=== PATIENT | female | born 1945 | race Hispanic/Latino ===

== ENCOUNTER 2018-12-26 15:17 | Inpatient (IN) | payer MEDICARE ==
--- NOTE | 2018-12-26 15:45 | Event Note ---
ED Screening Note Date of service: 12/26/18 Time: 15:41 ED Screening Note: Pt complains of right flank and side pain x 4 days states urinary and frequency pressure states diagnosed with kidney stone at urgent care Tuesday via CT states pain is worsening states stone is 5 mm--referred here by urologist today for admission--Dr. Collier This initial assessment/diagnostic orders/clinical plan/treatment(s) is/are subject to change based on patients health status, clinical progression and re- assessment by fellow clinical providers in the ED. Further treatment and workup at subsequent clinical providers discretion. Patient/guardian urged not to elope from the ED as their condition may be serious if not clinically assessed and managed. Initial orders include: Labs CBC
[2018-12-26] MEDS ORDERED: KETOROLAC 30 MG/1 ML INJ IV ONE (16:11)
[2018-12-26] MEDS ORDERED: ONDANSETRON 4 MG/2 ML INJ IV ONE (16:11)
[2018-12-26 16:19] LABS: Bilirubin,Urine NEG (Negative); Blood,Urine MOD (Negative); Color,Urine Yellow (Yellow); Mucus,Urine 1+ /HPF; Urobilinogen,Urine < 2.0 mg/dL (<2.0)
[2018-12-26 17:13] LABS: Basophils % (Auto) 0.7 % (0.0-1.8); Eosinophils # (Auto) 0.4 K/mm3 (0.0-0.4); Eosinophils % (Auto) 6.4 % (0.0-4.3); Hemoglobin 12.6 gm/dl (10.1-14.3); Lymphocytes # (Auto) 1.3 K/mm3 (1.2-5.4); Lymphocytes % (Auto) 19.1 % (13.4-35.0); Mean Corpuscular HGB Conc 34 % (30-34); Mean Corpuscular Volume 95 fl (79-97); Monocytes # (Auto) 0.8 K/mm3 (0.0-0.8); Monocytes % (Auto) 11.8 % (0.0-7.3); Platelet Count 282 K/mm3 (140-440); Red Blood Count 3.88 M/mm3 (3.65-5.03); Red Cell Distribution Width 12.7 % (13.2-15.2)
[2018-12-26 17:21] LABS: Alanine Aminotransferase 13 units/L (7-56); Albumin 3.8 g/dL (3.9-5); BUN/Creatinine Ratio 19; Blood Urea Nitrogen 15 mg/dL (7-17); Calcium 9.2 mg/dL (8.4-10.2); Hemolysis Index 88
[2018-12-26 17:25] LABS: Partial Thromboplastin Time 25.6 Sec. (24.2-36.6)
[2018-12-26 17:28] LABS: INR 0.98 (0.87-1.13)
--- NOTE | 2018-12-26 17:30 | Emergency Department Report ---
ED General Adult HPI - General Chief complaint: Abdominal Pain Stated complaint: BACK PAIN Time Seen by Provider: 12/26/18 15:41 Source: patient Mode of arrival: Ambulatory Limitations: No Limitations - History of Present Illness Initial comments: Patient is a 72-year-old female who was diagnosed with a right proximal ureter stone which was obstructing 3 days ago. Patient's Disease in his office and she was told to come to the hospital for possible intervention. The patient states she is very nauseous and has right flank pain which is a 6 out of 10 in severity. Patient has some mild dysuria. Patient denies fevers and chills. Severity scale (0 -10): 6 Consistency: constant Associated Symptoms: nausea/vomiting. denies: cough, diaphoresis, fever/chills, headaches, loss of appetite, malaise, shortness of breath, syncope, weakness - Related Data Allergies Allergy/AdvReac Type Severity Reaction Status Date / Time codeine Allergy Rash Verified 12/26/18 15:18 ED Review of Systems ROS: Stated complaint: BACK PAIN Other details as noted in HPI Comment: All other systems reviewed and negative ED Past Medical Hx - Past Medical History Previous Medical History?: Yes Hx Hypertension: Yes Hx Diabetes: Yes (pre) - Surgical History Past Surgical History?: Yes Additional Surgical History: hysterectomy. tonsillectomy. bilateral knee replacements - Social History Smoking Status: Never Smoker Substance Use Type: None ED Physical Exam - General Limitations: No Limitations General appearance: alert, in no apparent distress - Head Head exam: Present: atraumatic, normocephalic - Eye Eye exam: Present: normal appearance - ENT ENT exam: Present: mucous membranes moist - Neck Neck exam: Present: normal inspection - Respiratory Respiratory exam: Present: normal lung sounds bilaterally. Absent: respiratory distress, wheezes, rales, rhonchi - Cardiovascular Cardiovascular Exam: Present: regular rate, normal rhythm. Absent: systolic murmur, diastolic murmur, rubs, gallop - GI/Abdominal GI/Abdominal exam: Present: soft, tenderness, normal bowel sounds. Absent: distended, guarding, rebound, rigid - Extremities Exam Extremities exam: Present: normal inspection - Back Exam Back exam: Present: normal inspection - Neurological Exam Neurological exam: Present: alert, oriented X3 - Psychiatric Psychiatric exam: Present: normal affect, normal mood - Skin Skin exam: Present: warm, dry, intact, normal color. Absent: rash ED Course Vital Signs 12/26/18 12/26/18 15:40 16:59 Temperature 97.7 F Pulse Rate 69 57 L Respiratory 22 16 Rate Blood Pressure 144/59 Blood Pressure 125/54 [Left] O2 Sat by Pulse 96 98 Oximetry ED Medical Decision Making - Lab Data Result diagrams: 12/26/18 16:46 12/26/18 16:46 Critical care attestation.: If time is entered above; I have spent that time in minutes in the direct care of this critically ill patient, excluding procedure time. ED Disposition Clinical Impression: Obstructed, uropathy Acute cystitis Qualifiers: Hematuria presence: with hematuria Qualified Code(s): N30.01 - Acute cystitis with hematuria Disposition: 09 OP ADMIT IP TO THIS HOSP Is pt being admited?: Yes Does the pt Need Aspirin: No Condition: Stable Time of Disposition: 17:32
[2018-12-26] MEDS ORDERED: ONDANSETRON 4 MG/2 ML INJ IV PRN (18:19)
[2018-12-26] MEDS ORDERED: ACETAMINOPHEN 325 MG TAB PO PRN (18:19)
--- NOTE | 2018-12-26 18:22 | History and Physical Report ---
History of Present Illness Chief complaint: I have a kidney stone History of present illness: 72 YO Female with Obesity, HTN, DM presents to ED for evaluation. Pt was seen and evaluated in her Urologists office who was diagnosed with a 5mm right proximal ureter stone which was obstructing 3 days ago. Pt was instructed to seek further care at [facility]. Pt transported to [facility] via private vehicle. Pt seen and evaluated in ED and admitted to Surgical floor. Urology team consulted in ED and outpatient findings verified by urology team. Surgical intervention as per urology team. Pt initiated on IV antibiotic therapy. Past History Past Surgical History: hysterectomy, total knee replacement, tonsillectomy Social history: single. denies: smoking, alcohol abuse, prescription drug abuse Family history: diabetes, hypertension Medications and Allergies Allergies Allergy/AdvReac Type Severity Reaction Status Date / Time codeine Allergy Rash Verified 12/26/18 15:18 Active Meds: Active Medications Acetaminophen (Tylenol) 650 mg PO Q4H PRN PRN Reason: Pain MILD(1-3)/Fever >100.5/BROCK Ondansetron HCl (Zofran) 4 mg IV Q8H PRN PRN Reason: Nausea And Vomiting Sodium Chloride (Sodium Chloride Flush Syringe 10 Ml) 10 ml IV BID HELLEN Sodium Chloride (Sodium Chloride Flush Syringe 10 Ml) 10 ml IV PRN PRN PRN Reason: LINE FLUSH Review of Systems Constitutional: no weight loss, no fever, no chills Ears, nose, mouth and throat: no ear discharge, no tinnitis, no decreased hearing, no nasal congestion, no nasal discharge, no sinus pressure Breasts: no change in shape Cardiovascular: no chest pain, no orthopnea, no rapid/irregular heart beat, no syncope Respiratory: no cough, no cough with sputum, no hemoptysis, no shortness of breath, no dyspnea on exertion Gastrointestinal: no nausea, no vomiting, no change in bowel habits, no coffee ground emesis Genitourinary Female: no pelvic pain, no flank pain, no menorrhagia, no dysuria Rectal: no pain, no incontinence Musculoskeletal: no shooting arm pain, no arm numbness/tingling, no shooting leg pain Integumentary: no rash, no pruritis, no redness, no wounds, no jaundice Neurological: no head injury, no transient paralysis, no numbness, no seizures, no syncope Psychiatric: no anxiety, no change in sleep habits, no change in libido Endocrine: no heat intolerance, no polyphagia, no excessive thirst, no polydipsia, no nocturia Hematologic/Lymphatic: no easy bruising, no lymphedema Allergic/Immunologic: no wheezing, no anaphylaxis Exam - Constitutional Vitals: Temp Pulse Resp BP Pulse Ox 97.7 F 57 L 16 125/54 98 12/26/18 15:40 12/26/18 16:59 12/26/18 16:59 12/26/18 16:59 12/26/18 16:59 General appearance: Present: obese - EENT Eyes: Present: PERRL ENT: hearing intact, clear oral mucosa - Neck Neck: Present: supple, normal ROM - Respiratory Respiratory effort: normal Respiratory: bilateral: CTA - Cardiovascular Heart Sounds: Present: S1 & S2. Absent: rub, click - Extremities Extremities: pulses symmetrical, No edema Peripheral Pulses: within normal limits - Abdominal General gastrointestinal: Present: soft, non-tender, non-distended, normal bowel sounds Female genitourinary: Present: normal - Integumentary Integumentary: Present: clear, warm, dry - Musculoskeletal Musculoskeletal: gait normal, strength equal bilaterally - Psychiatric Psychiatric: appropriate mood/affect, intact judgment & insight - Neurologic Neurologic: CNII-XII intact, moves all extremities Results - Labs CBC & Chem 7: 12/26/18 16:46 12/26/18 16:46 Labs: Abnormal lab results 12/26/18 12/26/18 12/26/18 Range/Units 16:04 16:46 16:46 RDW 12.7 L (13.2-15.2) % Caroline % (Auto) 11.8 H (0.0-7.3) % Eos % (Auto) 6.4 H (0.0-4.3) % Glucose 116 H (65-100) mg/dL Albumin 3.8 L (3.9-5) g/dL Urine WBC (Auto) 31.0 H (0.0-6.0) /HPF Assessment and Plan - Patient Problems (1) Obstructed, uropathy Current Visit: Yes Status: Acute Plan to address problem: Urology consulted in ED, Pending surgical intervention as per urology team. (2) HTN (hypertension) Current Visit: Yes Status: Acute Qualifiers: Hypertension type: essential hypertension Qualified Code(s): I10 - Essential (primary) hypertension Plan to address problem: monitor bp q shift, supportive care, (3) Diabetes Current Visit: Yes Status: Acute Plan to address problem: ADA diet, insulin, accu check (4) Acute cystitis Current Visit: Yes Status: Acute Qualifiers: Hematuria presence: with hematuria Qualified Code(s): N30.01 - Acute cystitis with hematuria Plan to address problem: IV antibiotic therapy, urinalysis, CBC, CMP, (5) DVT prophylaxis Current Visit: Yes Status: Acute Plan to address problem: SCD to BLE while in bed , Pt ambulatory
--- NOTE | 2018-12-26 20:53 | Ultrasound Report ---
Ultrasound of the right kidney INDICATION: renal colic. COMPARISON: No relevant prior imaging study available. FINDINGS: RIGHT KIDNEY: Size: 11.4 cm. Echogenicity: Normal. Cortical thickness: Normal. Stones: None. Hydronephrosis: None. Cyst or mass: There is a 1.2 cm lesion in the lower pole of the right kidney. This contains a septati on within it. This appears to be a complex or complicated cyst. IMPRESSION 1. Small complex or complicated cyst in the lower pole of the right kidney. 3-6 month follow-up ultra sound is recommended to reevaluate.. There is no hydronephrosis. No other focal lesion is seen in the right kidney. Signer Name: Eloy Frye MD Signed: 12/26/2018 8:49 PM Workstation Name: [id number]
[2018-12-26] MEDS ORDERED: DEXTROSE 50% IN WATER (25GM) 50 ML SYRINGE IV PRN (21:08)
[2018-12-26] MEDS ORDERED: HYDROmorphone 1 MG/1 ML INJ IV PRN (21:10)
[2018-12-26] MEDS ORDERED: SODIUM CHLORIDE 0.45% 500 ML IV SCH (22:00)
[2018-12-27] MEDS ORDERED: WATER FOR IRRIG STERILE 2000 ML IR ONE
[2018-12-27] MEDS: INSULIN LISPRO 100 UNIT/ML SUB-Q SCH ×3 (03:11→12:39)
[2018-12-27 07:03] LABS: Alanine Aminotransferase 12 units/L (7-56); BUN/Creatinine Ratio 18; Blood Urea Nitrogen 14 mg/dL (7-17); Hemolysis Index 6
[2018-12-27 07:07] LABS: Basophils # (Auto) 0.1 K/mm3 (0.0-0.1); Basophils % (Auto) 0.9 % (0.0-1.8); Eosinophils # (Auto) 0.5 K/mm3 (0.0-0.4); Eosinophils % (Auto) 6.7 % (0.0-4.3); Hematocrit 37.4 % (30.3-42.9); Hemoglobin 12.6 gm/dl (10.1-14.3); Lymphocytes # (Auto) 1.7 K/mm3 (1.2-5.4); Lymphocytes % (Auto) 23.1 % (13.4-35.0); Mean Corpuscular HGB Conc 34 % (30-34); Mean Corpuscular Volume 96 fl (79-97); Monocytes # (Auto) 0.9 K/mm3 (0.0-0.8); Monocytes % (Auto) 12.1 % (0.0-7.3); Platelet Count 289 K/mm3 (140-440); Red Blood Count 3.89 M/mm3 (3.65-5.03); Red Cell Distribution Width 13.1 % (13.2-15.2)
[2018-12-27] MEDS ORDERED: fentaNYL 100 MCG/2 ML INJ IV PRN (07:09)
[2018-12-27] MEDS ORDERED: LACTATED RINGERS 1,000 ML IV SCH ×2 (07:11→08:00)
--- NOTE | 2018-12-27 07:11 | Anesthesia Consultation ---
Anesthesia Consult and Med Hx Date of service: 12/27/18 - Airway Anesthetic Teeth Evaluation: Good ROM Head & Neck: Adequate Mental/Hyoid Distance: Inadequate Mallampati Class: Class III Intubation Access Assessment: Possibly Difficult - Pulmonary Exam CTA: Yes - Cardiac Exam Cardiac Exam: RRR - Pre-Operative Health Status ASA Pre-Surgery Classification: ASA2 Proposed Anesthetic Plan: General - Pulmonary Hx Smoking: No Hx Respiratory Symptoms: No - Cardiovascular System Hx Hypertension: Yes Hx Heart Attack/AMI: No Hx Percutaneous Transluminal Coronary Angioplasty (PTCA): No - Central Nervous System Hx Seizures: No CVA: No - Gastrointestinal Hx Gastroesophageal Reflux Disease: No - Endocrine Hx Renal Disease: No Hx Liver Disease: No Hx Non-Insulin Dependent Diabetes: Yes Hx Hypothyroidism: Yes - Other Systems Hx Obesity: Yes (BMI 39) - Additional Comments Anesthesia Medical History Comments: No hx anesthetic complications.
--- NOTE | 2018-12-27 07:11 | Anesthesia Day of Surgery ---
Anesthesia Day of Surgery - Day of Surgery Patient Examined: Yes Patient H&P Reviewed: Yes Patient is NPO: Yes
[2018-12-27] MEDS ORDERED: fentaNYL 100 MCG/2 ML INJ ONE (07:31)
[2018-12-27] MEDS ORDERED: PROPOFOL 200 MG/20 ML VIAL IV ONE (07:32)
[2018-12-27] MEDS ORDERED: LIDOCAINE MPF (2%) 20 MG/1 ML VIAL 5 ML ONE (07:32)
[2018-12-27] MEDS ORDERED: GLYCOPYRROLATE 0.4 MG/2 ML INJ ONE (07:34)
[2018-12-27] MEDS ORDERED: dexAMETHasone 20 MG/5 ML VIAL ONE (07:34)
[2018-12-27] MEDS ORDERED: ONDANSETRON 4 MG/2 ML INJ ONE (07:34)
[2018-12-27] MEDS ORDERED: SUCCINYLCHOLINE CHLORIDE 200 MG/10 ML INJ MDV ONE (07:34)
--- NOTE | 2018-12-27 08:24 | Operative Report ---
PREOPERATIVE DIAGNOSIS: Severe right flank pain, hydronephrosis, right ureteral stone. POSTOPERATIVE DIAGNOSIS: Severe right flank pain, hydronephrosis, right ureteral stone. PROCEDURE: Cystoscopy, right retrograde, right ureteroscopy, stone extraction, J stent. SURGEON: Dr. Collier. ANESTHESIA: General. FINDINGS: This is a woman with intermittent severe right flank pain. She now presents for treatment. DESCRIPTION OF PROCEDURE: The patient was brought to the operating room and placed on the operating table. Following induction of anesthesia, placed in lithotomy position, prepped and draped in usual sterile fashion. Cystourethroscopy showed a swollen right orifice. We could barely see the stone. A wire coiled up in the kidney. Balloon dilatation was carried out. The stone was extracted and will be given to the patient. The patient tolerated the procedure well. No significant complication. Stent was in good position. We left the string, brought to recovery in stable condition. JOB# [id number] SALOME/NEGRA
--- NOTE | 2018-12-27 08:42 | Post Operative Note ---
Date of procedure: 12/27/18 Pre-op diagnosis: r ureteral stone Post-op diagnosis: same Findings: r ureteral stone Procedure: r ureteroscopy stent Anesthesia: GETA Surgeon: DAVINA OLMSTEAD Estimated blood loss: none Pathology: list (stone) Specimen disposition: to lab Condition: stable Disposition: PACU
--- NOTE | 2018-12-27 08:44 | Discharge Summary ---
Short Stay Discharge Plan Activity: other (no straining ) Weight Bearing Status: Full Weight Bearing Diet: low fat, low cholesterol, low salt Follow up with: GABE BAILEY MD [Primary Care Provider] - 7 Days DAVINA OLMSTEAD MD [Staff Physician] - 7 Days
--- NOTE | 2018-12-27 08:45 | Fluoroscopy Report ---
FLUOROSCOPY RETROGRADE UROGRAPHY FLUOROSCOPY URETER/NEPHROSTOMY DILATATION RIGHT HISTORY: Right ureteral stone FINDINGS: 1.8 minutes of fluoroscopy time was provided by radiology during retrograde urography by whitney salas urologist. 7 fluoroscopic images are presented. There appears to be obstruction of the mid right ureter by a right ureteral stone. The proximal right renal collecting system is not opacified. The distal right ureter is normal caliber. Subsequent imag es demonstrate right ureteroscopy and balloon dilatation of the right ureter and placement of a right ureteral stent which is in good position on the final image. Right ureteral stone extraction was per formed per the operative notes. No images of the left renal collecting system are presented. Please c orrelate with the procedural report as needed. IMPRESSION: Right ureteral stone removal. Right ureteral stent placement. Signer Name: Kenneth Ngo Jr, MD Signed: 12/27/2018 8:41 AM Workstation Name: [id number]
--- NOTE | 2018-12-27 11:12 | Progress Note ---
Assessment and Plan Assessment and plan: 73-year-old male with history of hypertension and diabetes. Admit to hospital for nephrolithiasis. Underwent stenting with urology. Diagnoses Obstructive uropathy due to nephrolithiasis Hypertension Diabetes Acute cystitis/UTI ruled out, urine culture negative Plan Underwent stenting per urology Continue current meds hypertension and diabetes DVT prophylaxis per primary team History Interval history: Review of systems Constitutional: No fevers, no malaise, no joint pains CVS: No chest pain, no orthopnea, no dyspnea on exertion, no pedal edema GI: No abdominal pain, no diarrhea, no vomiting, no constipation Respiratory: no wheezing, no coughing Hospitalist Physical - Physical exam Narrative exam: General.: Appears well, no distress, nontoxic HEENT: Moist mucous membranes, extraocular muscles intact, no lymphadenopathy Neck: supple Cardiac: S1-S2 heard Lungs: clear to auscultation bilaterally Abdomen: soft , nontender, nondistended, bowel sounds positive Extremities: no edema clubbing or cyanosis Skin: no rash or lesions Neurologic: no gross focal deficits Psych: calm, and cooperative - Constitutional Vitals: Temp Pulse Resp BP Pulse Ox 98 F 77 12 127/72 100 12/27/18 09:00 12/27/18 09:00 12/27/18 09:00 12/27/18 09:00 12/27/18 09:00 General appearance: Present: obese Results - Labs CBC & Chem 7: 12/27/18 06:25 12/27/18 06:25 Labs: Laboratory Last Values WBC 7.2 K/mm3 (4.5-11.0) 12/27/18 06:25 RBC 3.89 M/mm3 (3.65-5.03) 12/27/18 06:25 Hgb 12.6 gm/dl (10.1-14.3) 12/27/18 06:25 Hct 37.4 % (30.3-42.9) 12/27/18 06:25 MCV 96 fl (79-97) 12/27/18 06:25 MCH 32 pg (28-32) 12/27/18 06:25 MCHC 34 % (30-34) 12/27/18 06:25 RDW 13.1 % (13.2-15.2) L 12/27/18 06:25 Plt Count 289 K/mm3 (140-440) 12/27/18 06:25 Lymph % (Auto) 23.1 % (13.4-35.0) 12/27/18 06:25 Lea % (Auto) 12.1 % (0.0-7.3) H 12/27/18 06:25 Eos % (Auto) 6.7 % (0.0-4.3) H 12/27/18 06:25 Baso % (Auto) 0.9 % (0.0-1.8) 12/27/18 06:25 Lymph # 1.7 K/mm3 (1.2-5.4) 12/27/18 06:25 Lea # 0.9 K/mm3 (0.0-0.8) H 12/27/18 06:25 Eos # 0.5 K/mm3 (0.0-0.4) H 12/27/18 06:25 Baso # 0.1 K/mm3 (0.0-0.1) 12/27/18 06:25 Seg Neutrophils % 57.2 % (40.0-70.0) 12/27/18 06:25 Seg Neutrophils # 4.1 K/mm3 (1.8-7.7) 12/27/18 06:25 PT 12.9 Sec. (12.2-14.9) 12/26/18 16:46 INR 0.98 (0.87-1.13) 12/26/18 16:46 APTT 25.6 Sec. (24.2-36.6) 12/26/18 16:46 Sodium 140 mmol/L (137-145) 12/27/18 06:25 Potassium 3.5 mmol/L (3.6-5.0) L 12/27/18 06:25 Chloride 100.5 mmol/L (98-107) 12/27/18 06:25 Carbon Dioxide 27 mmol/L (22-30) 12/27/18 06:25 Anion Gap 16 mmol/L 12/27/18 06:25 BUN 14 mg/dL (7-17) 12/27/18 06:25 Creatinine 0.8 mg/dL (0.7-1.2) 12/27/18 06:25 Estimated GFR > 60 ml/min 12/27/18 06:25 BUN/Creatinine Ratio 18 % 12/27/18 06:25 Glucose 93 mg/dL (65-100) 12/27/18 06:25 POC Glucose 72 (70-105) 12/27/18 01:35 Calcium 9.0 mg/dL (8.4-10.2) 12/27/18 06:25 Total Bilirubin 0.40 mg/dL (0.1-1.2) 12/27/18 06:25 AST 19 units/L (5-40) 12/27/18 06:25 ALT 12 units/L (7-56) 12/27/18 06:25 Alkaline Phosphatase 76 units/L (35-129) 12/27/18 06:25 Total Protein 7.1 g/dL (6.3-8.2) 12/27/18 06:25 Albumin 4.0 g/dL (3.9-5) 12/27/18 06:25 Albumin/Globulin Ratio 1.3 % 12/27/18 06:25 Urine Color Yellow (Yellow) 12/26/18 16:04 Urine Turbidity Slightly-cloudy (Clear) 12/26/18 16:04 Urine pH 5.0 (5.0-7.0) 12/26/18 16:04 Ur Specific Jamul 1.018 (1.003-1.030) 12/26/18 16:04 Urine Protein 30 mg/dl mg/dL (Negative) 12/26/18 16:04 Urine Glucose (UA) Neg mg/dL (Negative) 12/26/18 16:04 Urine Ketones Neg mg/dL (Negative) 12/26/18 16:04 Urine Blood Mod (Negative) 12/26/18 16:04 Urine Nitrite Neg (Negative) 12/26/18 16:04 Urine Bilirubin Neg (Negative) 12/26/18 16:04 Urine Urobilinogen < 2.0 mg/dL (<2.0) 12/26/18 16:04 Ur Leukocyte Esterase Sm (Negative) 12/26/18 16:04 Urine WBC (Auto) 31.0 /HPF (0.0-6.0) H 12/26/18 16:04 Urine RBC (Auto) 49.0 /HPF (0.0-6.0) 12/26/18 16:04 U Epithel Cells (Auto) 2.0 /HPF (0-13.0) 12/26/18 16:04 Urine Mucus 1+ /HPF 12/26/18 16:04 Active Medications - Current Medications Current Medications: Generic Name Dose Route Start Last Admin Trade Name Freq PRN Reason Stop Dose Admin Acetaminophen 650 mg 12/26/18 18:19 Tylenol PO Q4H PRN Pain MILD(1-3)/Fever >100.5/BROCK Dextrose 50 ml 12/26/18 21:08 D50w (25gm) Syringe IV Q30MIN PRN Hypoglycemia Protocol Fentanyl 50 mcg 12/27/18 07:09 Sublimaze IV 12/27/18 22:00 Q5MIN PRN Pain , Severe (7-10) Hydromorphone HCl 0.5 mg 12/26/18 21:10 12/27/18 04:37 Dilaudid IV 0.5 mg Q3H PRN Administration Pain , Severe (7-10) Levofloxacin/Dextrose 500 mg in 100 mls @ 100 mls/hr 12/26/18 20:00 12/26/18 22:02 Levaquin 500mg/100ml IV 100 mls/hr Q24H HELLEN Administration Protocol Sodium Chloride 500 mls @ 50 mls/hr 12/26/18 22:00 12/26/18 22:07 Nacl 0.45% IV 50 mls/hr DIRECT HELLEN Administration Lactated Ringer's 1,000 mls @ 100 mls/hr 12/27/18 08:00 12/27/18 07:17 Lactated Ringers IV 100 mls/hr DIRECT HELLEN Administration Insulin Human Lispro 0 unit 12/27/18 00:00 12/27/18 03:11 Humalog SUB-Q Not Given Q6HR HELLEN Protocol Ondansetron HCl 4 mg 12/26/18 18:19 Zofran IV Q8H PRN Nausea And Vomiting Sodium Chloride 10 ml 12/26/18 22:00 12/26/18 22:03 Sodium Chloride Flush Syringe 10 Ml IV 10 ml BID HELLEN Administration Sodium Chloride 10 ml 12/26/18 18:19 Sodium Chloride Flush Syringe 10 Ml IV PRN PRN LINE FLUSH
[2018-12-27 12:47] VITALS: BP 140/64
--- NOTE | 2018-12-27 16:57 | Post Anesthesia Evaluation ---
- Post Anesthesia Evaluation Patient Participated: Yes Airway Patent: Yes Stable Respiratory Function: Yes Nausea/Vomiting: No Temp > 96.8F: Yes Pain Manageable: Yes Adequeate Hydration: Yes Anesthesia Complications: No
== END 2018-12-27 14:30 | disposition home or self-care (01) | DRG 661 ==
LOC: ED 15:17 → 3B-SURG 18:19
PROVIDERS: ADMIT Internal Medicine; ATTEND Internal Medicine
PROC: 0T768DZ Dilation of Right Ureter with Intraluminal Device, Via Natural or Artificial Opening Endoscopic (ICD-10-PCS; principal; 2018-12-27)
PROC: 0TC68ZZ Extirpation of Matter from Right Ureter, Via Natural or Artificial Opening Endoscopic (ICD-10-PCS; 2018-12-27)
PROC: BT1D1ZZ Fluoroscopy of Right Kidney, Ureter and Bladder using Low Osmolar Contrast (ICD-10-PCS; 2018-12-27)
DX: N13.2 Hydronephrosis with renal and ureteral calculous obstruction (principal); N13.9 Obstructive and reflux uropathy, unspecified; I10 Essential (primary) hypertension; E11.9 Type 2 diabetes mellitus without complications; E03.9 Hypothyroidism, unspecified; E66.9 Obesity, unspecified; Z96.653 Presence of artificial knee joint, bilateral; Z68.39 Body mass index [BMI] 39.0-39.9, adult; Z90.710 Acquired absence of both cervix and uterus; Z82.49 Family history of ischemic heart disease and other diseases of the circulatory system; Z83.3 Family history of diabetes mellitus; Z88.5 Allergy status to narcotic agent
CPT/HCPCS: 36415; 74420; 76775; 80053; 81001; 82962; 85025; 85610; 85730; 87086; 96374; G0378; A4217; C1726; C1758; C1769; C2617; J0330; J1100; J1170; J1885; J1956; J2405; J2704; J3010; J7120; Q9967